=== PATIENT | female | born 2000 | race Caucasian/White ===

== ENCOUNTER 2022-05-14 17:05 | Emergency (ER) | payer MEDICAID ==
[~2022-05-14] VITALS: Ht 162.6 cm; Wt 61.4 kg
[2022-05-14 17:10] VITALS: TEMP 97.6
[2022-05-14 17:56] LABS: COLLECTION METHOD CLEAN CATCH
[2022-05-14 18:01] LABS: BASO # 0.1 K/mm3 (0.0-0.2); BASO % 0.6 % (0.0-2.0); EOS # 0.1 K/mm3 (0.0-0.7); EOS % 1.5 % (0.0-4.0); GRAN # 4.6 K/mm3 (1.4-6.5); GRAN % 55.7 % (42.2-75.2); HEMATOCRIT 39.7 % (37.0-47.0); LYMPH # 2.9 K/mm3 (1.2-3.4); LYMPH % 34.9 % (20.0-51.0); MEAN CELL VOLUME 82 fl (80.0-100.0); MEAN CORPUSCULAR HEMOGLOBIN 27 pg (27-31); MEAN CORPUSCULAR HGB CONC 33 g/dl (33.0-37.0); MEAN PLATELET VOLUME 9.9 fl (7.4-10.4); MONO # 0.6 K/mm3 (0.1-0.6); MONO % 7.1 % (1.7-9.3); PLATELET COUNT 300 K/mm3 (130-400); RED BLOOD COUNT 4.84 M/mm3 (4.10-5.30)
[2022-05-14 18:16] LABS: ALBUMIN 4.4 gm/dL (3.5-5.0); BILIRUBIN,TOTAL 0.3 mg/dL (0.2-1.2); CALCIUM 9.5 mg/dL (8.4-10.2); CREATININE, serum 0.82 mg/dL (0.57-1.11); POTASSIUM 3.7 mmol/L (3.5-4.5); TOTAL PROTEIN 7.4 gm/dL (6.2-8.1)
[2022-05-14 18:21] LABS: PH 6.5 (5.0-8.5); URINE APPEARANCE Clear (CLEAR/HAZY); URINE BLOOD 1+ (NEGATIVE); URINE COLOR Yellow (YELLOW); URINE GLUCOSE Negative (NEGATIVE); URINE KETONE 3+ (NEGATIVE); URINE NITRATE Negative (NEGATIVE); URINE PROTEIN(semi-quant) Negative (NEGATIVE)
[2022-05-14 18:54] LABS: MUCOUS Present (NOT PRESENT); SQUAMOUS EPITHELIAL 0-2 /hpf (0-10); URINE BACTERIA None Seen /hpf (NONE SEEN)
[2022-05-14 18:57] VITALS: BP 125/83; PULSE 74
== END 2022-05-14 18:57 | disposition home or self-care (01) ==
LOC: COL.ER 17:05
PROVIDERS: Emergency Medicine
DX: R10.31 Right lower quadrant pain (principal); Z32.02 Encounter for pregnancy test, result negative
CPT/HCPCS: J7030; Q9967